=== PATIENT | male | born 1940 | race Hispanic/Latino ===

== ENCOUNTER 2018-02-02 11:36 | Day surgery (SDC) | payer MEDICARE ==
[~2018-02-02 11:36] MED LIST: AK-Dilate ONE; IOPIDINE ONE; MYDRIACYL ONE
[2018-02-02] MEDS ORDERED: IOPIDINE OS ONE (12:00)
[2018-02-02] MEDS ORDERED: NEOFRIN OS ONE (12:00)
[2018-02-02] MEDS ORDERED: MYDRIACYL OS ONE (12:00)
[2018-02-02 14:53] VITALS: BP 142/58
== END 2018-02-02 11:37 | disposition home or self-care (01) ==
LOC: OR 11:36
PROVIDERS: ATTEND Specialist
DX: H26.492 Other secondary cataract, left eye (principal); E78.00 Pure hypercholesterolemia, unspecified; I25.10 Atherosclerotic heart disease of native coronary artery without angina pectoris; I73.9 Peripheral vascular disease, unspecified; I25.2 Old myocardial infarction; K21.9 Gastro-esophageal reflux disease without esophagitis; Z95.5 Presence of coronary angioplasty implant and graft; Z98.42 Cataract extraction status, left eye; Z98.41 Cataract extraction status, right eye; Z92.3 Personal history of irradiation; Z87.891 Personal history of nicotine dependence; Z85.118 Personal history of other malignant neoplasm of bronchus and lung; Z98.890 Other specified postprocedural states